=== PATIENT | female | born 1955 | race Caucasian/White ===

== ENCOUNTER 2017-03-13 08:26 | Day surgery (SDC) | payer OTHER ==
[2017-03-13] MEDS ORDERED: FENTANYL 100 MCG/2 ML VIAL ONE (09:32)
== END 2017-03-13 11:04 | disposition home or self-care (01) ==
LOC: SDS 08:26 → GI 08:26
DX: Q21.1 Atrial septal defect (principal); I28.0 Arteriovenous fistula of pulmonary vessels; R06.09 Other forms of dyspnea; I27.2 Other secondary pulmonary hypertension
CPT/HCPCS: 93312; 93321; 93325